=== PATIENT | female | born 1995 | race Caucasian/White ===

== ENCOUNTER 2024-02-20 17:06 | Emergency (ER) | payer OTHER ==
[~2024-02-20] VITALS: Ht 162.6 cm; Wt 70.0 kg
[2024-02-20 17:15] VITALS: O2SAT 100
[2024-02-20] MEDS ORDERED: ACET-2708 MT (19:14)
[2024-02-20 19:59] VITALS: BP 110/60; PULSE 70; RESP 15; TEMP 98.4
[2024-02-20] MEDS: ACETAMINOPHEN 325MG TABLET PO ONE (19:59)
== END 2024-02-20 20:00 | disposition home or self-care (01) ==
LOC: ER 17:06
DX: O26.892 Other specified pregnancy related conditions, second trimester (principal); S93.401A Sprain of unspecified ligament of right ankle, initial encounter; Z3A.24 24 weeks gestation of pregnancy; W18.39XA Other fall on same level, initial encounter; Y93.89 Activity, other specified; Y92.89 Other specified places as the place of occurrence of the external cause; Y99.8 Other external cause status
CPT/HCPCS: 73610; 99283; Z7610 ×2